=== PATIENT | male | born 1955 | race Caucasian/White ===

== ENCOUNTER 2024-07-25 20:11 | Emergency (ER) | payer MEDICARE, OTHER ==
[~2024-07-25] VITALS: Ht 177.8 cm; Wt 79.5 kg
[~2024-07-25 20:11] MED LIST: APIX5TAB PO; ASPI-1450 PO; ATOR40TA28 PO; CHOL200059 PO; DIVA-111 PO; FOLI-130 PO; GABA-1216 PO; LACT10SO85 PO; LOSA-382 PO; MIRT-89 PO; SERT-162 PO
[2024-07-25 20:27] VITALS: TEMP 97.4
[2024-07-25 21:35] LABS: BASOPHILS % (AUTO) 0.9 % (0.0-2.0); EOSINOPHILS % (AUTO) 4.7 % (1.0-6.0); HEMATOCRIT 38.5 % (41-53); HEMOGLOBIN 12.4 g/dL (13.5-17.5); LYMPHOCYTES # (AUTO) 1.8 K/uL (1.0-4.8); LYMPHOCYTES % (AUTO) 35.8 % (22.0-44.0); MEAN CORPUSCULAR HEMOGLOBIN 29.4 pg (26.0-34.0); MEAN CORPUSCULAR HGB CONC 32.3 G/dL (31.0-37.0); MEAN CORPUSCULAR VOLUME 91 fL (80-100); MONOCYTES # (AUTO) 0.7 K/uL (0.1-1.0); MONOCYTES % (AUTO) 14.5 % (2.0-9.0); NEUTROPHILS # (AUTO) 2.2 K/uL (1.8-7.7); NEUTROPHILS % (AUTO) 44.1 % (40.0-70.0); PLATELET COUNT (AUTO) 284 K/uL (150-450); RED BLOOD CELL COUNT(AUTO) 4.22 MIL/uL (4.50-5.90); RED CELL DISTRIBUTION WIDTH 15.5 % (11.5-14.5)
[2024-07-25 21:45] LABS: ANION GAP 8 mmol/L (8-16); CALCIUM, TOTAL 9.3 mg/dL (8.8-10.5); CARBON DIOXIDE 27 mmol/L (22-29); CHLORIDE 107 mmol/L (98-107); CREATININE 0.74 mg/dL (0.60-1.30); GLOMERULAR FILTR. RATE CALC > 60 mL/min (>60); GLUCOSE,RANDOM 54 mg/dL (70-110); POTASSIUM 4.2 mmol/L (3.5-5.1); SODIUM SERUM 142 mmol/L (136-145); UREA NITROGEN, BLOOD 6 mg/dL (7-18)
[2024-07-25 21:54] LABS: TROPONIN I-HIGH SENSITIVITY 22 ng/L (<76)
[2024-07-25] MEDS: LORazepam 2 MG TABLET PO ONE (22:05)
[2024-07-25] MEDS: DIVALPROEX SODIUM 500 MG ER TABLET PO ONE (22:06)
[2024-07-25] MEDS: MIRTAZAPINE 15 MG TABLET PO ONE (22:06)
[2024-07-25 22:10] VITALS: BP 115/52; PULSE 60; RESP 16; O2SAT 95
== END 2024-07-25 23:12 | disposition home or self-care (01) ==
LOC: EMS 20:12
DX: F25.9 Schizoaffective disorder, unspecified (principal); F32.A Depression, unspecified; F41.9 Anxiety disorder, unspecified; I10 Essential (primary) hypertension; I48.91 Unspecified atrial fibrillation; K21.9 Gastro-esophageal reflux disease without esophagitis; Z79.01 Long term (current) use of anticoagulants; Z79.82 Long term (current) use of aspirin; Z79.899 Other long term (current) drug therapy; Z86.73 Personal history of transient ischemic attack (TIA), and cerebral infarction without residual deficits
CPT/HCPCS: 80048; 84484; 85025; 99284

== ENCOUNTER 2025-02-22 15:32 | Inpatient (IN) | payer MEDICARE, MEDICAID ==
[~2025-02-22] VITALS: Ht 180.3 cm; Wt 73.2 kg
[2025-02-22 17:04] LABS: COVID AG,FIA SOURCE NASAL SWAB
[2025-02-22 17:06] LABS: PLATELET COUNT (AUTO) 282 K/uL (150-450); RED BLOOD CELL COUNT(AUTO) 4.75 MIL/uL (4.50-5.90); RED CELL DISTRIBUTION WIDTH 14.4 % (11.5-14.5); WHITE BLOOD COUNT (AUTO) 4.3 K/uL (4.5-11.0)
[2025-02-22 17:13] LABS: CALCIUM, TOTAL 8.8 mg/dL (8.8-10.5); CREATININE 1.01 mg/dL (0.60-1.30); GLOMERULAR FILTR. RATE CALC > 60 mL/min (>60); GLUCOSE,RANDOM 84 mg/dL (70-110); SODIUM SERUM 134 mmol/L (136-145); UREA NITROGEN, BLOOD 18 mg/dL (7-18)
[2025-02-22 17:25] LABS: SARS-COV2 (COVID) ANTIGEN,FIA Negative (Negative)
[2025-02-22 20:10] LABS: APPEARANCE,URINE CLEAR (CLEAR); GLUCOSE, URINE (UA) NEGATIVE (NEGATIVE); LEUKOCYTE ESTERASE ,URINE NEGATIVE (NEGATIVE); NITRATE,URINE NEGATIVE (NEGATIVE); OCCULT BLOOD,URINE NEGATIVE (NEGATIVE); PH,URINE DRUG SCREEN 7.0 (5.0-8.0); SPECIFIC GRAVITIY, URINE 1.009 (1.003-1.030)
[2025-02-22 20:13] LABS: AMPHET/METH SCREEN,URINE NEGATIVE (NEGATIVE); BARBITURATE SCREEN, URINE NEGATIVE (NEGATIVE); CANNABINOID SCREEN,URINE NEGATIVE (NEGATIVE); COCAINE SCREEN,URINE NEGATIVE (NEGATIVE); METHADONE SCREEN, URINE NEGATIVE (NEGATIVE)
[2025-02-22 20:17] LABS: ALCOHOL, URINE DRUG SCREEN NEGATIVE (NEGATIVE)
[2025-02-23] MEDS ORDERED: ZOLPIDEM TARTRATE 10 MG TABLET PO PRN (12:45)
[2025-02-23] MEDS: SERTRALINE HCL 100 MG TABLET PO ONE (16:19)
[2025-02-23 19:58] VITALS: O2SAT 98
[2025-02-23] MEDS: MIRTAZAPINE 15 MG TABLET PO SCH (21:55)
[2025-02-23] MEDS ORDERED: LOPERAMIDE HCL 2 MG CAPSULE PO PRN ×2 (22:30→22:45)
[2025-02-23] MEDS ORDERED: TUBERCULIN, PURIFIED PROTEIN DERIVATIVE 5 TU/0.1 ML SYRINGE ID ONE ×2 (22:30→22:45)
[2025-02-23] MEDS ORDERED: IBUPROFEN 400 MG TABLET PO PRN (22:30)
[2025-02-23] MEDS ORDERED: ACETAMINOPHEN 325 MG TABLET PO PRN ×3 (22:30→22:45)
[2025-02-23] MEDS ORDERED: MAGNESIUM HYDROXIDE SUSPENSION 30 ML UDCUP PO PRN ×2 (22:30→22:45)
[2025-02-23] MEDS ORDERED: LACTULOSE 20 GM/30 ML SOLUTION UDCUP PO PRN (22:30)
[2025-02-23] MEDS ORDERED: PROMETHAZINE HCL 25 MG TABLET PO PRN ×2 (22:30→22:45)
[2025-02-23] MEDS ORDERED: GuaiFENesin/D-METHORPHAN [SUGAR-FREE] 200-20MG/10 ML SYRUP UDCUP PO PRN ×2 (22:30→22:45)
[2025-02-23] MEDS ORDERED: MAG HYDROX/ALUMINUM HYD/SIMETH ES 30 ML SUSPENSION UDCUP PO PRN ×2 (22:30→22:45)
[2025-02-24 07:39] LABS: ASPARTATE AMINOTRANSFERASE 35 U/L (15-37); CALCIUM, TOTAL 8.7 mg/dL (8.8-10.5); CHOL/HDL RATIO 2.6 (4.2-7.3); CREATININE 0.77 mg/dL (0.60-1.30); GLOMERULAR FILTR. RATE CALC > 60 mL/min (>60); GLUCOSE,RANDOM 95 mg/dL (70-110); LDL CHOL (CALC.) 77 mg/dL (0-130); SODIUM SERUM 137 mmol/L (136-145); TOTAL PROTEIN, SERUM 8.0 g/dL (6.4-8.2); UREA NITROGEN, BLOOD 18 mg/dL (7-18)
[2025-02-24 08:37] VITALS: BP 140/76; PULSE 58; RESP 17; TEMP 98.9; O2SAT 98
[2025-02-24] MEDS: FOLIC ACID 1 MG TABLET PO SCH (09:00)
[2025-02-24] MEDS ORDERED: THIAMINE 100 MG TABLET PO SCH (09:00)
[2025-02-24] MEDS: ASPIRIN 81 MG CHEWABLE TABLET PO SCH (09:00)
[2025-02-24] MEDS: LOSARTAN POTASSIUM 50 MG TABLET PO SCH (09:00)
[2025-02-24] MEDS: SERTRALINE HCL 100 MG TABLET PO SCH (09:00)
[2025-02-24] MEDS: DIVALPROEX SODIUM 250 MG DR TABLET PO SCH (09:00)
[2025-02-24] MEDS: MULTIVITAMINS WITH MINERALS, THERAPEUTIC TABLET PO SCH (09:00)
[2025-02-24] MEDS ORDERED: DIVALPROEX SODIUM 250 MG DR TABLET PO SCH (09:00)
[2025-02-24] MEDS ORDERED: FOLIC ACID 1 MG TABLET PO SCH ×2 (09:00)
[2025-02-24] MEDS ORDERED: MULTIVITAMINS WITH MINERALS, THERAPEUTIC TABLET PO SCH (09:00)
[2025-02-24] MEDS: CHOLECALCIFEROL (VIT D3) 2,000 UNITS [50 MCG] TABLET PO SCH (09:00)
[2025-02-24] MEDS: APIXABAN 5 MG TABLET PO SCH (09:00)
[2025-02-24] MEDS: THIAMINE 100 MG TABLET PO SCH (09:00)
[2025-02-24 09:49] VITALS: BP 151/81; PULSE 79
[2025-02-24] MEDS: MELATONIN 5 MG TABLET PO SCH (20:43)
[2025-02-24] MEDS: ATORVASTATIN CALCIUM 40 MG TABLET PO SCH (20:43)
[2025-02-24 21:44] VITALS: RESP 16
[2025-02-25 08:17] VITALS: BP_SYST 79; PULSE 59; RESP 18; TEMP 98.1; O2SAT 99
[2025-02-25 20:00] VITALS: BP 115/61; PULSE 76; RESP 18; TEMP 99.1; O2SAT 95
[2025-02-26 08:42] VITALS: BP 100/56; PULSE 60; RESP 17; O2SAT 96
[2025-02-26] MEDS: AMOX TR/POT CLAV 500 MG/125 MG TABLET PO SCH (16:21)
[2025-02-26] MEDS: NYSTATIN 30 GM CREAM TP SCH (16:23)
[2025-02-26 22:25] VITALS: BP 136/66; PULSE 86; RESP 17; TEMP 98
[2025-02-27 09:06] VITALS: BP 109/63; PULSE 60; RESP 18; O2SAT 95
[2025-02-27] MEDS: SERTRALINE HCL 100 MG TABLET PO SCH (10:02)
[2025-02-27 21:19] VITALS: BP 102/61; PULSE 62; RESP 17; TEMP 97.9; O2SAT 95
[2025-02-28 11:26] VITALS: BP 139/69; PULSE 63; RESP 16; TEMP 98.4; O2SAT 95
[2025-02-28 21:22] VITALS: BP 124/58; PULSE 74; RESP 18; TEMP 97.6; O2SAT 100
[2025-03-01 09:01] VITALS: BP 109/71; PULSE 82; RESP 18; TEMP 98.2; O2SAT 98
[2025-03-01] MEDS ORDERED: DIVA-111 PO (09:07)
[2025-03-01] MEDS ORDERED: MIRT-89 PO (09:07)
[2025-03-01] MEDS ORDERED: SERT-440 PO (09:07)
[2025-03-01] MEDS ORDERED: MELA5TAB40 PO (09:07)
[2025-03-01] MEDS ORDERED: TRAZ-257 PO (09:07)
[2025-03-01] MEDS ORDERED: NYST30OI6 TP (11:03)
[2025-03-01] MEDS ORDERED: MULT-1303 PO (11:03)
[2025-03-01] MEDS ORDERED: AMOX1TAB15 PO (11:05)
[2025-03-01] MEDS ORDERED: THIA100T80 PO (11:06)
== END 2025-03-01 18:05 | DRG 885 ==
LOC: EMS 15:32 → 3EI 02-23 21:00
PROVIDERS: ADMIT Psychiatry & Neurology Psychiatry; ATTEND Psychiatry & Neurology Psychiatry
PROC: GZHZZZZ Group Psychotherapy (ICD-10-PCS; principal; 2025-02-23)
PROC: GZ58ZZZ Individual Psychotherapy, Cognitive-Behavioral (ICD-10-PCS; 2025-02-23)
PROC: GZ56ZZZ Individual Psychotherapy, Supportive (ICD-10-PCS; 2025-02-24)
DX: F33.2 Major depressive disorder, recurrent severe without psychotic features (principal); F25.9 Schizoaffective disorder, unspecified; G40.409 Other generalized epilepsy and epileptic syndromes, not intractable, without status epilepticus; I48.91 Unspecified atrial fibrillation; E78.00 Pure hypercholesterolemia, unspecified; I10 Essential (primary) hypertension; Z20.822 Contact with and (suspected) exposure to COVID-19; K21.9 Gastro-esophageal reflux disease without esophagitis; F41.9 Anxiety disorder, unspecified; Z63.9 Problem related to primary support group, unspecified; Z59.9 Problem related to housing and economic circumstances, unspecified; Z65.3 Problems related to other legal circumstances; Z55.9 Problems related to education and literacy, unspecified; Z86.73 Personal history of transient ischemic attack (TIA), and cerebral infarction without residual deficits; Z91.148 Patient's other noncompliance with medication regimen for other reason
CPT/HCPCS: 80048; 80053; 80061; 80164; 80307; 81003; 83036; 85025; 86592; 87081; 97110; 97112; 97162; 97166; 97530; 97535; 99285; G0480